=== PATIENT | male | born 1970 ===

== ENCOUNTER 2017-02-18 23:37 | Emergency (ER) | payer OTHER ==
[2017-02-18 23:42] VITALS: BP 152/69; PULSE 81; RESP 20; TEMP 98.4; O2SAT 99
--- NOTE | 2017-02-19 00:07 | C.PDOC ---
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 Pt reports, " was picking a heavy garbage can and kick myslef to side". Pt describes pain as localized over Right lateral ribcage, reproducible, worse with movement. Otherwise, pt denies CP, SOB , dyspnea, diaphoresis, palpitation, abd. pain, N/V/D, denies any other active complaints. At the time of evaluation, pt appears somewhat intoxicated. Time Seen by Provider: 02/18/17 23:45 Chief Complaint (Nursing): Rib Injury History Per: Patient Past Medical History Reviewed: Historical Data, Nursing Documentation, Vital Signs Vital Signs: Last Vital Signs Temp 98.4 F 02/18/17 23:40 Pulse 81 02/18/17 23:40 Resp 20 02/18/17 23:40 BP 152/69 H 02/18/17 23:40 Pulse Ox 99 02/19/17 00:09 - Medical History PMH: No Chronic Diseases Surgical History: No Surg Hx Family History: States: Unknown Family Hx - Social History Hx Tobacco Use: Yes Hx Alcohol Use: Yes Hx Substance Use: Yes - Immunization History Hx Tetanus Toxoid Vaccination: No Hx Influenza Vaccination: No Hx Pneumococcal Vaccination: No Review Of Systems Except As Marked, All Systems Reviewed And Found Negative. Constitutional: Negative for: Fever, Chills Eyes: Negative for: Vision Change ENT: Negative for: Ear Discharge, Nose Discharge Cardiovascular: Positive for: Other (Right ribcage pain). Negative for: Chest Pain, Palpitations, Orthopnea, Edema, Light Headedness Respiratory: Negative for: Cough, Shortness of Breath, SOB with Excertion, Pleuritic Pain, Sputum, Wheezing Gastrointestinal: Negative for: Nausea, Vomiting, Abdominal Pain Genitourinary: Negative for: Dysuria, Incontinence Musculoskeletal: Negative for: Neck Pain, Back Pain Skin: Negative for: Bruising Neurological: Negative for: Weakness, Numbness, Confusion, Altered Mental Status , Dizziness Physical Exam - Physical Exam Appears: Well, Non-toxic, No Acute Distress Skin: Normal Color, Warm, Dry, No Rash, No Ecchymosis Eye(s): bilateral: PERRL Nose: No Flaring, No Discharge Oral Mucosa: Moist, No Drooling Throat: No Drooling Neck: Trachea Midline, No Midline Cervical Tenderness, No Paracervical Tenderness, No Step Off Deformity, Supple Chest: Symmetrical, No Deformity, Tenderness (Right lateral cehst wall tenderness overlying 5-7 intercostal spaces, no palpable deformity.), No Ecchymosis, No Subcutaneous Emphysema Cardiovascular: Rhythm Regular, No Friction Rub, No Murmur, No JVD Respiratory: No Decreased Breath Sounds, No Accessory Muscle Use, No Stridor, No Wheezing Gastrointestinal/Abdominal: Soft, No Tenderness Extremity: Normal ROM, No Deformity, No Swelling Neurological/Psych: Oriented x3, Normal Speech, Normal Motor, Normal Sensation, Normal Reflexes ED Course And Treatment O2 Sat by Pulse Oximetry: 99 Pulse Ox Interpretation: Normal - Other Rad Rib serial w/CXR X-Ray: Interpreted by Me, Viewed By Me Interpretation: no acute fx or pneumothorax Progress Note: On re-evaluation, pt is afebrile, hemodynamicaly stable. NOn- toxic. AMbulatory in ED with stable agait. PulseOx 99% RA. Neck: Supple, (-) midline tenderness. Lungs: CTA B/L, BS equal B/L. CVS: (+)S1S2, reg. Abd: benign. Imaging review and appears without acute abnormalities. PT has clinical findings c/w Right sided chest wall contusion. Pt advised. ref. to F/ u with PMD in 2-3 days for re-eavl. return to ED if any worsening or new changes. Disposition - Disposition Disposition: HOME/ ROUTINE Disposition Time: 00:30 Condition: STABLE Additional Instructions: Light duty Avoid physical activity for 1 week Follow up with pMD in 2-3 days for re-evaluation Return to ED if any worsening or new changes. Prescriptions: Ibuprofen [Motrin Tab] 600 mg PO Q6 #20 tab Methocarbamol [Robaxin] 500 mg PO TID #14 tab Instructions: Rib Contusion (ED) Forms: Pearl[employer] (German) - Clinical Impression Clinical Impression: Chest wall contusion
== END 2017-02-19 01:03 | disposition home or self-care (01) ==
LOC: C.ER 23:37
DX: S20.219A Contusion of unspecified front wall of thorax, initial encounter (principal); W22.8XXA Striking against or struck by other objects, initial encounter; Z87.891 Personal history of nicotine dependence